=== PATIENT | female | born 1970 | race Caucasian/White ===

== ENCOUNTER → 2016-12-04 | Outpatient (CLI) | payer OTHER ==
--- NOTE | ~2016-12-04 | US98 ---
[facility]. [facility] A Service of [facility] & [facility] RADIOLOGY TEXT RESULTS PATIENT: KEHINDE QURESHI LOCATION: [facility] : 74 UNIT #: [id number] AGE: [address]: Pamela Noble MD SEX: F ORDER DR: [id number] [address] [address] [id number] O MR#: [id number] Acc #: [id number] NAME: KEHINDE QURESHI : 1970 SEX: F STUDY DATE/TIME: 12/04/2016 8:49 UNIT: [facility] ROOM: STUDY DESCRIPTION: US Pelvic Non-OB Complete Attending Physician: Pamela Noble M.D. Referring Physician: Pamela Noble M.D. Ordering Physician: Pamela Noble M.D. Primary Care Physician: Pamela Noble M.D. MEDICAL IMAGING REPORT This report is preliminary unless electronic signature is present. EXAM Pelvic ultrasound transabdominal and transvaginal technique, 12/04/2016 INDICATION Dysfunctional uterine bleeding in a 45-year-old female for a year. Lower back pain for a year. History of uterine ablation procedure. TECHNIQUE Sonographic imaging of the pelvis was performed transabdominally and then transvaginally for better evaluation of the adnexa and ovarian structures. COMPARISON 04/22/2015 FINDINGS TRANSABDOMINAL IMAGING: The uterus measures about 8.6 cm x 3.0 cm x 4.4 cm. Endometrial stripe measures less than a centimeter. Neither ovary identified transabdominally. TRANSVAGINAL IMAGING: Endometrial stripe measures about 6 mm. Small echogenic reflector associated with the endometrial stripe may represent a small calcification or a focus of adenomyosis. The appearance is unchanged from the prior study and was also seen on a more distant 2011 study as well. The uterus is otherwise unremarkable. The right ovary measures up to 2.1 cm and is otherwise unremarkable. The left ovary was not identified. No adnexal mass, free fluid or drainable fluid collection. IMPRESSION Essentially negative pelvic ultrasound. The left ovary could not be identified. The right appears unremarkable. [facility] A Service of [facility] & [facility] RADIOLOGY TEXT RESULTS PATIENT: KEHINDE QURESHI [id number] 74 UNIT #: [id number] AGE: [address]: Pamela Noble MD SEX: F ORDER DR: Dictated by... Osito Hand M.D. THIS IS AN ELECTRONICALLY VERIFIED REPORT Osito Hand M.D. at 12/05/2016 2:16 PM Charissa TD: 12/04/2016 21:24 JOB #: [id number] MEDICAL IMAGING REPORT Page 1 of 1
--- NOTE | ~2016-12-04 | US128 ---
[id number] [address] [address] [id number] O MR#: [id number] Acc #: [id number] NAME: KEHINDE QURESHI : 1970 SEX: F STUDY DATE/TIME: 12/04/2016 9:13 UNIT: [facility] ROOM: STUDY DESCRIPTION: Thyroid Attending Physician: Pamela Noble M.D. Referring Physician: Pamela Noble M.D. Ordering Physician: Pamela Noble M.D. Primary Care Physician: Pamela Noble M.D. MEDICAL IMAGING REPORT This report is preliminary unless electronic signature is present. EXAM Ultrasound of the thyroid gland INDICATIONS Neck pain. Patient has a known history of multinodular goiter. Most recent thyroid ultrasound was 05/24/2010. Patient was noted in multiple bilateral nodules at that time. TECHNIQUE Cisneros-scale and color Doppler sonographic images were obtained through the thyroid gland. FINDINGS The thyroid gland is enlarged. Right lobe measures 2.7 x 2.8 x 6.5 cm. Left lobe measures 2.7 x 2.4 x 6.2 cm. Isthmus measures about 8 mm in thickness. Multiple cysts are seen throughout the thyroid gland, similar to findings on prior exam. This includes either 2 cysts or a septated cyst within the left lobe of the thyroid gland measuring up to 1.4 x 0.7 x 0.9 cm. This was also present on the prior study, may be slightly larger on today's study. IMPRESSION 1. Thyromegaly. 2. Bilateral thyroid cysts. Single largest cyst is identified within the left lobe of thyroid gland. It does contain some septations within it, measures up to 1.4 x 0.7 x 0.9 cm and might be slightly larger than on prior study. Dictated by... Fabiana Chavez M.D. THIS IS AN ELECTRONICALLY VERIFIED REPORT Fabiana Chavez M.D. at 12/07/2016 3:40 PM AFF/pcl TD: 12/05/2016 20:14 JOB #: [id number] MEDICAL IMAGING REPORT Page 1 of 1
--- NOTE | ~2016-12-04 | MY11 ---
[facility] A Service of [facility] RADIOLOGY TEXT RESULTS PATIENT: KEHINDE QURESHI LOCATION: [facility] : 74 UNIT #: [id number] AGE: [address]: Pamela Noble MD SEX: F ORDER DR: [id number] [address] [address] [id number] O MR#: [id number] Acc #: [id number] NAME: KEHINDE QURESHI : 1970 SEX: F STUDY DATE/TIME: 12/04/2016 9:05 UNIT: [facility] ROOM: STUDY DESCRIPTION: MY Mammogram Screening [place] Attending Physician: Pamela Noble M.D. Referring Physician: Pamela Noble M.D. Ordering Physician: Pamela Noble M.D. Primary Care Physician: Pamela Noble M.D. MEDICAL IMAGING REPORT This report is preliminary unless electronic signature is present. EXAM Digital screening mammogram 12/04/2016 [facility] HISTORY 45-year-old woman positive family history, maternal grandmother age 30. Family history of uterine cancer in mother. Annual screening. COMPARISON: Mammograms date to 04/24/2008 with most recent 04/22/2015. FINDINGS Digital imaging of each breast was completed utilizing a two-view examination of each breast in craniocaudal and mediolateral-oblique projections. Review and interpretation of digital mammograms include a second review in conjunction with FDA-approved CAD device. There is a normal parenchymal presentation bilaterally consistent with the patient's age. There are no breast masses imaged and no parenchymal asymmetry is visualized. There are no suspicious microcalcifications and I see no focal architectural disturbance. IMPRESSION Negative screening digital mammogram. One-year followup recommended. Patients over the age of 40 are entered into a reminder system with target due date for the next mammogram. A result letter will also be sent to the patient. BIRADS: 1 Negative [facility] A Service [facility] RADIOLOGY TEXT RESULTS PATIENT: KEHINDE QURESHI LOCATION: [facility] : 74 UNIT #: [id number] AGE: [address]: Pamela Noble MD SEX: F ORDER DR: Dictated by... Chay Ruiz M.D. THIS IS AN ELECTRONICALLY VERIFIED REPORT Chay Ruiz M.D. at 12/04/2016 11:54 AM RADHA/soheila TD: 12/04/2016 11:16 JOB #: [id number] MEDICAL IMAGING REPORT Page 1 of 1
== END | disposition home or self-care (01) ==
LOC: SMAM 07:56
DX: Z12.31 Encounter for screening mammogram for malignant neoplasm of breast (principal); N93.8 Other specified abnormal uterine and vaginal bleeding; M54.2 Cervicalgia; E04.2 Nontoxic multinodular goiter; Z80.3 Family history of malignant neoplasm of breast
CPT/HCPCS: 76536; 76830; 76856; G0202